=== PATIENT | male | born 1970 | race Caucasian/White ===

== ENCOUNTER 2025-03-17 12:15 | Outpatient (CLI) | payer OTHER, SELFPAY | END 2025-03-17 12:16 | disposition home or self-care (01) | PROVIDERS: Visit Provider Family Medicine | DX: Z00.00 Encounter for general adult medical examination without abnormal findings (principal); E11.9 Type 2 diabetes mellitus without complications | CPT/HCPCS: 80053; 80061; 82043; 82570; G0103 ==